=== PATIENT | male | born 1975 | race Two or more races ===

== ENCOUNTER → 2025-01-24 | Outpatient (CLI) | payer MEDICARE, MEDICAID, SELFPAY ==
[2025-01-24 13:08] LABS: Collection Type, Urine Clean Catch
[2025-01-24 13:41] LABS: Basophils # (Auto) 0.1 Thou/mm3 (0.0-0.2); Basophils % (Auto) 1 % (0-2.5); Eosinophils # (Auto) 0.2 Thou/mm3 (0.0-0.5); Eosinophils % (Auto) 1 % (0-10); Hematocrit 48.8 % (41.0-53.0); Immature Granulocytes % (Auto) 1 % (0-0); Immature Granulocytes Auto 0.06 Thou/mm3 (0.00-0.00); Lymphocytes # (Auto) 3.3 Thou/mm3 (1.0-4.8); Lymphocytes % (Auto) 26 % (10-50); Mean Corpuscular HGB Conc 32.8 g/dl (31.0-37.0); Mean Corpuscular Hemoglobin 29.4 pg (25.0-35.0); Mean Corpuscular Volume 90 fL (80-100); Monocytes # (Auto) 0.9 Thou/mm3 (0.0-0.8); Monocytes % (Auto) 7 % (0-12); Neutrophils # (Auto) 8.3 Thou/mm3 (1.8-7.7); Neutrophils % (Auto) 65 % (37-80); Nucleated Red Blood Cell % 0 /100 WBC (0); Platelet Count 227 Thou/mm3 (140-440); RDW Standard Deviation 43.5 fL (35.1-43.9); Red Blood Count 5.45 Miln/mm3 (4.50-5.90); White Blood Count 12.8 Thou/mm3 (3.8-10.6)
[2025-01-24 14:02] LABS: Bilirubin,Urine Negative (Negative); Blood,Urine Negative (Negative); Clarity,Urine Clear (Clear/Hazy); Color,Urine Yellow (Lt Yel-Yel); Glucose, Urine 4+ (Negative); Ketones,Urine Negative (Negative); Leukocyte Esterase,Urine Positive (Negative); Nitrite,Urine Negative (Negative); Protein,Urine 1+ (Neg - Trace); RBC,Urine 5 /hpf (0-3); Specific Gravity,Urine 1.031 (1.001-1.035); Squamous Epithelial Cell,Urine 2 /hpf (0-5); Urobilinogen,Urine Negative mg/dL (0.0-1.0); WBC,Urine 28 /hpf (0-5)
[2025-01-24 14:03] LABS: Glucose Estimated Average 272 mg/dL (80-131); Hemoglobin A1C 11.1 % Hgb (4.8-6.0)
[2025-01-24 14:05] LABS: Alanine Aminotransferase 31 U/L (10-49); Albumin, Serum 4.2 gm/dL (3.5-5.0); Albumin/Globulin Ratio 1.6 (1.2-2.2); Alkaline Phosphatase 104 U/L (46-116); Anion Gap 8 (7-16); Aspartate Amino Transferase 36 U/L (0-34); BUN/Creatinine Ratio 20 Ratio (12-20); Bilirubin,Total 0.5 mg/dL (0.3-1.2); Blood Urea Nitrogen 16 mg/dL (9-23); Calcium 9.6 mg/dL (8.3-10.6); Calcium (Corrected) 9.6 mg/dL (8.5-10.1); Carbon Dioxide 28.4 mMol/L (20.0-31.0); Cardiac Risk Estimate 2.9 RATIO (4.0-6.7); Chloride 101 mMol/L (98-107); Cholesterol 102 mg/dL (132-200); Creatinine (Component) 0.8 mg/dL (0.6-1.3); Globulin 2.7 gm/dL (2.3-3.5); Glucose 205 mg/dL (74-106); HDL Cholesterol 35 mg/dL (40-60); LDL Cholesterol,Calculated 25 mg/dL (0-130); Osmolality,Calculated 281 (275-295); Potassium 4.5 mMol/L (3.4-5.1); Sodium 137 mMol/L (136-145); Total Protein 6.9 gm/dL (5.7-8.2); Triglycerides 209 mg/dL (30-150); eGFR > 60 See Note
== END | disposition home or self-care (01) ==
PROVIDERS: PCP Family Medicine; Referring Provider Family Medicine; Visit Provider Family Medicine
DX: E11.40 Type 2 diabetes mellitus with diabetic neuropathy, unspecified (principal)
CPT/HCPCS: 36415; 80053; 80061; 81001; 83036; 85025

== ENCOUNTER → 2025-06-07 | Outpatient (CLI) | payer MEDICARE, MEDICAID, SELFPAY ==
[2025-06-07 13:19] LABS: Glucose Estimated Average 214 mg/dL (80-131); Hemoglobin A1C 9.1 % Hgb (4.8-6.0)
[2025-06-07 13:28] LABS: Creatinine MALB Rnd Ur 50 mg/dL (30-125); Microalbumin Creat Ratio 78 mg/gCrea (<30); Microalbumin, Random Urine 39 mg/L (0-300)
[2025-06-07 13:29] LABS: Alanine Aminotransferase 25 U/L (10-49); Albumin, Serum 4.4 gm/dL (3.5-5.0); Albumin/Globulin Ratio 1.4 (1.2-2.2); Alkaline Phosphatase 95 U/L (46-116); Anion Gap 13 (7-16); Aspartate Amino Transferase 28 U/L (0-34); BUN/Creatinine Ratio 13 Ratio (12-20); Bilirubin,Total 0.4 mg/dL (0.3-1.2); Blood Urea Nitrogen 12 mg/dL (9-23); Calcium 9.6 mg/dL (8.3-10.6); Calcium (Corrected) 9.6 mg/dL (8.5-10.1); Carbon Dioxide 22.3 mMol/L (20.0-31.0); Cardiac Risk Estimate 3.5 RATIO (4.0-6.7); Chloride 104 mMol/L (98-107); Cholesterol 122 mg/dL (132-200); Creatinine (Component) 0.9 mg/dL (0.6-1.3); Globulin 3.2 gm/dL (2.3-3.5); Glucose 172 mg/dL (74-106); HDL Cholesterol 35 mg/dL (40-60); LDL Cholesterol,Calculated 41 mg/dL (0-130); Osmolality,Calculated 281 (275-295); Potassium 4.3 mMol/L (3.4-5.1); Sodium 139 mMol/L (136-145); Total Protein 7.6 gm/dL (5.7-8.2); Triglycerides 232 mg/dL (30-150); eGFR > 60 See Note
== END | disposition home or self-care (01) ==
LOC: COPL 11:35
PROVIDERS: PCP Family Medicine; Referring Provider Family Medicine; Visit Provider Family Medicine
DX: E11.65 Type 2 diabetes mellitus with hyperglycemia (principal); E78.2 Mixed hyperlipidemia; I10 Essential (primary) hypertension
CPT/HCPCS: 36415; 80053; 80061; 82043; 82570; 83036

== ENCOUNTER 2025-09-30 12:16 | Emergency (ER) | payer MEDICARE, MEDICAID, SELFPAY ==
[2025-09-30] VITALS (8 sets, daily range): BP systolic 127–163; BP diastolic 74–97; PULSE 81–102; RESP 15–24; TEMP 36.7–36.9; O2SAT 91–98; BMI 51.7
--- NOTE | 2025-09-30 13:08 | XR_ITS ---
EXAMINATION: Testicular sonography complete TECHNIQUE: Grayscale sonographic images testes, assessment arterial inflow and venous outflow Doppler spectral analysis color flow analysis Date and time: September 30, 2025, 1432 hours INDICATIONS: Right testicular swelling beginning 2 days ago FINDINGS: Right testis 4.4 cm epididymis 1.4 cm Arterial flow logistical. No testicular mass Right scrotal mass with vascularity 4.0 x 3.4 x 3.9 cm Mild hydronephrosis Thickened scrotal wall Left testis 4.0 cm epididymis 13 mm Arterial flow testicle. No testicular mass Moderate varicocele Mild hydrocele IMPRESSION: No testicular torsion or testicular mass Vascular heterogeneous mass in the right scrotum 4.0 x 3.4 x 3.9 cm, consider abscess, recommend urology consultation
--- NOTE | 2025-09-30 13:09 | PD.EDRME ---
Rapid Medical Screening Exam E Arrival date/time: 09/30/25 12:16 This is a 50-year-old male that comes into the emergency room with a complaint of an abscess to the right testicle. Patient states has been there since Wednesday. Patient states that its gotten worse overnight. Patient reports history of diabetes and hyperlipidemia I have greeted and performed a focused initial assessment of this patient. Initial appropriate labs ordered at this time. A comprehensive ED assessment and evaluation of the patient and analysis of all test and completion of medical decision making process will be conducted by additional ED provider. Chief Complaint: Urogenital-Male Time Seen by Provider: 09/30/25 12:38 Vital signs: Vital Signs Temperature 98.5 F 09/30/25 12:51 Pulse Rate 92 09/30/25 12:51 Respiratory Rate 18 09/30/25 12:51 Blood Pressure 150/81 H 09/30/25 12:51 Pulse Oximetry (%) 95 09/30/25 12:51 Oxygen Delivery Method Room Air 09/30/25 12:51 Exam: Swelling and erythema to right testicle, alert and oriented breathing even unlabored, Clinical Impression: Abscess cellulitis testicle
[2025-09-30 13:36] LABS: Lactate (Lactic Acid) 2.3 mMol/L (0.4-2.0)
[2025-09-30 13:39] LABS: Basophils # (Auto) 0.1 Thou/mm3 (0.0-0.2); Basophils % (Auto) 1 % (0-2.5); Eosinophils # (Auto) 0.1 Thou/mm3 (0.0-0.5); Eosinophils % (Auto) 1 % (0-10); Hematocrit 50.1 % (41.0-53.0); Hemoglobin 16.2 g/dL (13.5-16.0); Immature Granulocytes Auto 0.06 Thou/mm3 (0.00-0.00); Lymphocytes # (Auto) 2.9 Thou/mm3 (1.0-4.8); Lymphocytes % (Auto) 17 % (10-50); Mean Corpuscular HGB Conc 32.3 g/dl (31.0-37.0); Mean Corpuscular Hemoglobin 29.2 pg (25.0-35.0); Mean Corpuscular Volume 90 fL (80-100); Monocytes # (Auto) 1.4 Thou/mm3 (0.0-0.8); Monocytes % (Auto) 8 % (0-12); Neutrophils # (Auto) 12.1 Thou/mm3 (1.8-7.7); Neutrophils % (Auto) 73 % (37-80); Nucleated Red Blood Cell # 0.00 Thou/mm3 (0.00-0.00); Nucleated Red Blood Cell % 0 /100 WBC (0); Platelet Count 266 Thou/mm3 (140-440); RDW Standard Deviation 46.1 fL (35.1-43.9); Red Blood Count 5.54 Miln/mm3 (4.50-5.90); White Blood Count 16.6 Thou/mm3 (3.8-10.6)
[2025-09-30 14:02] LABS: Alanine Aminotransferase 15 U/L (10-49); Albumin, Serum 4.9 gm/dL (3.5-5.0); Albumin/Globulin Ratio 1.8 (1.2-2.2); Alkaline Phosphatase 97 U/L (46-116); Anion Gap 9 (7-16); Aspartate Amino Transferase 18 U/L (0-34); BUN/Creatinine Ratio 17 Ratio (12-20); Bilirubin,Total 0.4 mg/dL (0.3-1.2); Blood Urea Nitrogen 15 mg/dL (9-23); Calcium 9.9 mg/dL (8.3-10.6); Calcium (Corrected) 9.9 mg/dL (8.5-10.1); Carbon Dioxide 27.4 mMol/L (20.0-31.0); Chloride 102 mMol/L (98-107); Creatinine (Component) 0.9 mg/dL (0.6-1.3); Estimated Creatinine Clearance 136.7 mL/min (>60); Globulin 2.7 gm/dL (2.3-3.5); Glucose 169 mg/dL (74-106); Osmolality,Calculated 280 (275-295); Potassium 4.2 mMol/L (3.4-5.1); Procalcitonin 0.12 ng/ml (0.0-0.49); Sodium 138 mMol/L (136-145); Total Protein 7.6 gm/dL (5.7-8.2); eGFR > 60 See Note
--- NOTE | 2025-09-30 15:50 | PD.EDMALE ---
ED Male Genitalurinary RME/HPI General Chief complaint: Urogenital-Male Stated complaint: TESTICULAR SWELLING, BOIL TO GROIN AREA Time Seen by Provider: 09/30/25 12:38 Arrival date/time: 09/30/25 12:16 RME / HPI RME / HPI Narrative: 09/30/25 12:16 This is a 50-year-old male that comes into the emergency room with a complaint of an abscess to the right testicle. Patient states has been there since Wednesday. Patient states that its gotten worse overnight. Patient reports history of diabetes and hyperlipidemia I have greeted and performed a focused initial assessment of this patient. Initial appropriate labs ordered at this time. A comprehensive ED assessment and evaluation of the patient and analysis of all test and completion of medical decision making process will be conducted by additional ED provider. DR. AUGUSTINE MAIN ED EVALUATION: 50-year-old male presents to the Emergency Department for right testicular swelling and pain that began yesterday around 3 AM. The patient reports that the pain and swelling have worsened today since onset. He initially drove to a hospital in [place], but they did not accept his insurance, so he traveled here for evaluation. He denies fever but reports mild sweating. No trauma, dysuria, or urethral discharge reported. No prior episodes of similar pain. He also mentions that he has a history of diabetes and chronic right knee pain on [place]; for which he cannot undergo knee replacement surgery due to obesity. Related Data Home Medications ?Medication ?Instructions ?Recorded ?Confirmed dulaglutide 0.75 mg/0.5 mL 0.75 mg subcut QWEEK 03/22/23 03/22/23 subcutaneous pen injector (Trulicity) empagliflozin 25 mg tablet 25 mg PO QDAY 03/22/23 03/22/23 (Jardiance) fenofibrate 160 mg tablet 160 mg PO QDAY 03/22/23 03/22/23 hydrocodone 10 mg-acetaminophen 1 tab PO Q6H PRN Pain 03/22/23 03/22/23 325 mg tablet lisinopril 20 1 tab PO QDAY 03/22/23 03/22/23 mg-hydrochlorothiazide 25 mg tablet metformin 1,000 mg tablet 1,000 mg PO BID 03/22/23 03/22/23 pregabalin 25 mg capsule 25 mg PO Q8H 03/22/23 03/22/23 simvastatin 20 mg tablet 20 mg PO QPM 03/22/23 03/22/23 sitagliptin phosphate 100 mg 100 mg PO QDAY 03/22/23 03/22/23 tablet (Januvia) Allergies Allergy/AdvReac Type Severity Reaction Status Date / Time METALS Allergy Intermediate Rash Uncoded 03/20/23 21:20 Review of Systems Review of Systems Systems Reviewed: All systems reviewed, normal except as documented Past Medical History Past Medical History RESPIRATORY: Positive Asthma ENDOCRINE: Positive Diabetes Mellitus Type 2 Social History SMOKING STATUS: Current every day smoker SUBSTANCE USE: marijuana ED Exam Narrative Physical exam: GENERAL APPEARANCE: alert and oriented x 4, well-developed, well-nourished, no acute distress VITALS: All vitals were reviewed and the pulse ox is 91% on room air, which is hypoxic according to my interpretation. HEENT: Normocephalic, atraumatic; pupils equal, round, reactive to light; EOMI; mucous membranes pink, moist; oropharynx clear NECK: Supple LUNGS: CTABL; no wheezes, no rales, no rhonchi HEART: Regular rate, regular rhythm; normal S1, S2; no murmurs ABDOMEN: non distended; normal BS; soft, no tenderness, no guarding, no rebound; no masses, no organomegaly, no hernia BACK: no CVA tenderness EXAM: Right groin with induration and erythema extending into the right scrotum; scrotal swelling and tenderness present EXTREMITIES: Atraumatic; no edema NEUROLOGIC: awake; alert and oriented x4; cranial nerves II-XII grossly intact; no focal sensory or motor deficits PSYCHIATRIC: appropriate mood and affect SKIN: Warm; erythema localized to right groin/scrotum; no rash or ulceration elsewhere Course Quality Measures none Orders Category Date Time Status CT Screening NOW Care 09/30/25 15:51 Completed Referral - Egg Processor Stat Cons 09/30/25 17:[address] pelvis w con Stat Exams 09/30/25 15:51 Completed US testicular Stat Exams 09/30/25 13:08 Completed Blood Culture (Lab) Stat Lab 09/30/25 13:29 Results CBC Stat Lab 09/30/25 13:29 Completed Comprehensive Metabolic Panel Stat Lab 09/30/25 13:29 Completed Lactate (Lactic Acid) Stat Lab 09/30/25 13:29 Completed Lactic Acid, 3 HR Stat Lab 09/30/25 17:15 Completed Procalcitonin Stat Lab 09/30/25 13:29 Completed Urinalysis, C/S if Indicated Stat Lab 09/30/25 15:40 Completed HYDROcodone*/APAP 5/325 [[place] 5/325] Med 09/30/25 18:04 Discontinued 1 tab PO X1 ONE Piper/Tazo 3.375 gm Premix [Zosyn] Med 09/30/25 16:07 Discontinued 3.375 gm in 50 ml IV X1 Vancomycin/Ns 1 gm Ivpb 200 ml Med 09/30/25 16:07 Discontinued IV X1 Vital Signs Vital signs: Vital Signs Temperature 98.5 F 09/30/25 12:51 Pulse Rate 92 09/30/25 12:51 Respiratory Rate 18 09/30/25 12:51 Blood Pressure 150/81 H 09/30/25 12:51 Pulse Oximetry (%) 95 09/30/25 12:51 Oxygen Delivery Method Room Air 09/30/25 12:51 Urogenital - Male MDM Narrative MDM Narrative:: IYahaira am scribing for and in the presence of Dr. Augustine. Patient data External records reviewed:: [facility] previous records Clinical information provided by:: patient Social determinants that could affect healthcare access:: substance use (marijuana) Patient has the following chronic illnesses:: History of diabetes and chronic right knee pain on [place]; for which he cannot undergo knee replacement surgery due to obesity. How is presenting disease/condition affected by chronic disease/condition?: uneffected by Evaluation data The following diagnostics were reviewed and interpreted by me:: lab results and radiology exam(s) Lab and/or radiology exams considered but not ordered:: none Interpretation Summary: Procedure(s): US testicular Accession Number(s): [id number] cc: Jasper Boyer MD; Abel Escalona MD; Glory Bowser NP~ EXAMINATION: Testicular sonography complete TECHNIQUE: Grayscale sonographic images testes, assessment arterial inflow and venous outflow Doppler spectral analysis color flow analysis Date and time: September 30, 2025, 1432 hours INDICATIONS: Right testicular swelling beginning 2 days ago FINDINGS: Right testis 4.4 cm epididymis 1.4 cm Arterial flow logistical. No testicular mass Right scrotal mass with vascularity 4.0 x 3.4 x 3.9 cm Mild hydronephrosis Thickened scrotal wall Left testis 4.0 cm epididymis 13 mm Arterial flow testicle. No testicular mass Moderate varicocele Mild hydrocele IMPRESSION: No testicular torsion or testicular mass Vascular heterogeneous mass in the right scrotum 4.0 x 3.4 x 3.9 cm, consider abscess, recommend urology consultation Dictated By: Abel Escalona MD Procedure(s): CT pelvis w jie Accession Number(s): [id number] cc: Jasper Boyer MD; Abel Escalona MD; Mary Augustine MD~ Examination: CT pelvis with intravenous contrast, 2-D sagittal reconstructions. 2-D coronal reconstructions. 3-D reconstructions. Date and time of exam: September 30, 2025, 1642 hours INDICATIONS: Right testicular swelling and pain today CTDI: vol (mGy): 22.3 DLP: (mGycm): 601 Technique: Multiple 1.25 mm axial sections of the pelvis post intravenous administration 60 cc Isovue 370 have been obtained. 2-D sagittal and coronal reconstructions have been obtained. 3-D reconstructions have been obtained. Low dose protocols were performed. One or more of the following dose reduction techniques were used; automated exposure control, adjustment of the mA and/or KV according to patient size, use of iterative reconstruction technique. Findings: Normal appendix Normal seminal vesicles No prostatomegaly Urinary bladder intact No inguinal hernia Abscess in the right scrotal sac extending to the right perineum, axial image 169, coronal image 82, measuring 4 x 4 cm with thick wall Cellulitis in the perineum extending into the scrotal sac IMPRESSION: Abscess in the right scrotal sac extending into the right perineum, the abscess measuring 4 x 4 CM, recommend urology consultation Dictated By: Abel Escalona MD Medications / Prescriptions Medications or Prescriptions considered but not ordered:: nonw Medication administrations:: Medication Administration History Discontinued Medications Hydrocodone Bitart/Acetaminophen (Hydrocodone/Apap 5/325 Tablet) 1 tab PO X1 ONE Stop: 09/30/25 18:05 Last Admin: 09/30/25 18:27 Dose: 1 tab Documented By: EF Vancomycin/Sodium Chloride (Vancomycin/Ns 1 Gm Ivpb) 200 mls @ 120 mls/hr IV X1 ONE Stop: 09/30/25 17:46 Last Infusion: 09/30/25 18:29 Dose: Infused Documented By: Admin: 09/30/25 16:21 Dose: 120 mls/hr Documented By: EF Piperacillin/Tazobactam/Dextrose (Zosyn) 3.375 gm in 50 mls @ 100 mls/hr IV X1 ONE; Protocol Stop: 09/30/25 16:36 Last Infusion: 09/30/25 16:52 Dose: Infused Documented By: Admin: 09/30/25 16:20 Dose: 100 mls/hr Documented By: EF see above if any Consultations Consultation(s) initiated? (list below): No Diagnosis Urogenital Male Differential Diagnosis: other (Steven's gangrene, epididymo-orchitis, and cellulitis of the groin/scrotum.) Most likely diagnosis given after review of the tests above:: See below under clinical impression Admission Indicated Admission indicated?: not indicated Admission Request Was there a request for admission?: No Disposition Plan Disposition Plan: Transfer (Patient signed out to Dr. Ventura pending transfer for urology.) Discharge Plan Plan Patient Disposition: [facility] Pt Being Transferred to: [facility] Service Needed for Transfer: Urology Prescriptions/Referrals Prescriptions/Med Rec: No Action hydrocodone-acetaminophen 10-325 mg Tablet 1 tab PO Q6H PRN (Reason: Pain) simvastatin 20 mg Tablet 20 mg PO QPM metformin 1,000 mg Tablet 1,000 mg PO BID lisinopril-hydrochlorothiazide 20-25 mg Tablet 1 tab PO QDAY fenofibrate 160 mg Tablet 160 mg PO QDAY pregabalin 25 mg Capsule 25 mg PO Q8H Januvia 100 mg Tablet 100 mg PO QDAY Jardiance 25 mg Tablet 25 mg PO QDAY Trulicity 0.75 mg/0.5 mL Pen Injector 0.75 mg SUBCUT QWEEK Referrals: Jasper Boyer MD [Primary Care Provider, Family Practice] - In 1 week Problem List Clinical Impression: Scrotal abscess, Cellulitis, Hyperglycemia without ketosis Patient/Caregiver Discharge Instructions Print Language: Thai Stand Alone Forms: Genny Award Info., Patient Portal Info Letter
[2025-09-30 15:55] LABS: Collection Type, Urine Voided
[2025-09-30] MEDS: PIPER/TAZO 3.375 GM PREMIX 3.375 GM/50 ML BAG IV (16:20)
[2025-09-30] MEDS: VANCOMYCIN/NS 1 GM IVPB 200 ML IV (16:21)
[2025-09-30 16:34] LABS: Reflex Lactate? Y
[2025-09-30 17:01] LABS: Bilirubin,Urine Negative (Negative); Blood,Urine Negative (Negative); Budding Yeast,Urine Present; Clarity,Urine Clear (Clear/Hazy); Color,Urine Lt-Yellow (Lt Yel-Yel); Culture Indicated,Urine Not Indicated; Glucose, Urine 4+ (Negative); Ketones,Urine Negative (Negative); Leukocyte Esterase,Urine Positive (Negative); Nitrite,Urine Negative (Negative); PH,Urine 6.0 (5.0-7.0); Protein,Urine Negative (Neg - Trace); RBC,Urine 5 /hpf (0-3); Specific Gravity,Urine 1.032 (1.001-1.035); Squamous Epithelial Cell,Urine 9 /hpf (0-5); Urobilinogen,Urine Negative mg/dL (0.0-1.0); WBC,Urine 4 /hpf (0-5)
[2025-09-30 17:33] LABS: Lactic Acid, 3 HR 2.0 mMol/L (0.4-2.0)
--- NOTE | 2025-09-30 18:01 | PC.CM ---
Addendum entered by Ophelia Puckett RN 09/30/25 18:50: 1845 0 I spoke to Albert with [facility] and I connected her MD to MD. I started the packet and made a CD. I took paperwork and 1 CD to ED. 1814 I initiated transfer with [facility] and I faxed over information. Original Note: 1754 I received a referral to transfer patient for urology services for an abscess that extends into the perineum.
--- NOTE | 2025-09-30 18:10 | EDNOTE_ITS ---
Emergency Room Addendum Addendum Narrative: 1800: Care assumed from Dr. Augustine, the previous shift emergency physician. Past medical, surgical, social and family history reviewed. Vitals and home medications reviewed. Results and treatment plan discussed. I will assume the care of the patient at this time and will follow the patient, pending urology transfer. Please refer to the emergency department record for history and examination from initial visit. Pleasant, morbidly obese 50yo male presenting with progressively worsening painful swelling to the right scrotal region and was found to have evidence of scrotal abscess extending from the external sac to to right perineal region. Patient appears slightly flushed, but is nontoxic. Labs demonstrated elevated WBC 16.6, mildly elevated glucose of 169, no evidence of DKA. UA without signs of infection. Patient received IV fluids, dual antibiotics, and will require urological consultation. 1841: Discussed case with [facility]'s transfer center. Discussed patients ED course, exam findings, labs, and radiology results. Awaiting callback. 2006: Discussed case with Dr. Yin from urology at [facility] regarding possible transfer. Discussed patients ED course, exam findings, labs, and radiology results. Accepts the patient for transfer. Dx: scrotal abscess, cellulitis, hyperglycemia without ketosis
[2025-09-30] MEDS: HYDROcodone/APAP 5/325 TABLET 1 TAB PO (18:27)
--- NOTE | 2025-09-30 21:04 | PC.NURSE ---
lassessment of scrotum shows swollen scrotum, painful lump to R SIDE.PT RESTING QUIETLY. IV TO L HAND CAUSING PAIN. TAPE REMOVED AND IV REAJUSTED AND SECURED. NO PAIN NOW.
--- NOTE | 2025-09-30 21:28 | PC.NURSE ---
THIS PT IS ACCEPTED TO [facility] BY DR. MORRISSEY. THIS PT IS GOING TO RM 259 AND NUMBER FOR REPORT IS [phone]. HOANG WAS THE FACILITY REP I SPOKE WITH FOR ACCEPTING INFORMATION.
--- NOTE | 2025-09-30 22:22 | PC.NURSE ---
EMS HERE NOW. REPORT GIVEN TO BEE[facility] CATTLE SPECIALIST. PT A & o X 4. vs ARE STABLE. REPORT CALLED TO [facility]ORMONISM Yahir Garza. PT LEAVING HERE NOW.
== END 2025-09-30 22:28 | disposition short-term general hospital (02) ==
PROVIDERS: Nurse Practitioner Family; Emergency Provider Emergency Medicine; PCP Family Medicine
DX: L02.215 Cutaneous abscess of perineum (principal); E11.65 Type 2 diabetes mellitus with hyperglycemia; E66.9 Obesity, unspecified; E78.5 Hyperlipidemia, unspecified; G89.29 Other chronic pain; Z79.84 Long term (current) use of oral hypoglycemic drugs
CPT/HCPCS: 36415; 72193; 76870; 80053; 81001; 83605; 84145; 85025; 87040; 96365; 96366; 99282; A4649; J2543; J3373; Q9967; A9270

== ENCOUNTER → 2025-10-25 | Outpatient (CLI) | payer MEDICARE, MEDICAID, SELFPAY ==
[2025-10-25 13:57] LABS: Basophils # (Auto) 0.1 Thou/mm3 (0.0-0.2); Basophils % (Auto) 1 % (0-2.5); Eosinophils # (Auto) 0.2 Thou/mm3 (0.0-0.5); Eosinophils % (Auto) 1 % (0-10); Hematocrit 52.8 % (41.0-53.0); Hemoglobin 16.6 g/dL (13.5-16.0); Immature Granulocytes Auto 0.04 Thou/mm3 (0.00-0.00); Lymphocytes # (Auto) 3.2 Thou/mm3 (1.0-4.8); Lymphocytes % (Auto) 26 % (10-50); Mean Corpuscular HGB Conc 31.4 g/dl (31.0-37.0); Mean Corpuscular Hemoglobin 29.1 pg (25.0-35.0); Mean Corpuscular Volume 93 fL (80-100); Monocytes # (Auto) 0.9 Thou/mm3 (0.0-0.8); Monocytes % (Auto) 8 % (0-12); Neutrophils # (Auto) 7.7 Thou/mm3 (1.8-7.7); Neutrophils % (Auto) 64 % (37-80); Nucleated Red Blood Cell # 0.00 Thou/mm3 (0.00-0.00); Nucleated Red Blood Cell % 0 /100 WBC (0); Platelet Count 239 Thou/mm3 (140-440); RDW Standard Deviation 47.8 fL (35.1-43.9); Red Blood Count 5.71 Miln/mm3 (4.50-5.90); White Blood Count 12.1 Thou/mm3 (3.8-10.6)
[2025-10-25 14:21] LABS: Alanine Aminotransferase 24 U/L (10-49); Albumin, Serum 4.7 gm/dL (3.5-5.0); Albumin/Globulin Ratio 1.7 (1.2-2.2); Alkaline Phosphatase 104 U/L (46-116); Anion Gap 10 (7-16); Aspartate Amino Transferase 22 U/L (0-34); BUN/Creatinine Ratio 23 Ratio (12-20); Bilirubin,Total 0.4 mg/dL (0.3-1.2); Blood Urea Nitrogen 14 mg/dL (9-23); Calcium 9.3 mg/dL (8.3-10.6); Calcium (Corrected) 9.3 mg/dL (8.5-10.1); Carbon Dioxide 26.0 mMol/L (20.0-31.0); Cardiac Risk Estimate 3.1 RATIO (4.0-6.7); Chloride 104 mMol/L (98-107); Cholesterol 106 mg/dL (132-200); Creatinine (Component) 0.6 mg/dL (0.6-1.3); Globulin 2.8 gm/dL (2.3-3.5); Glucose 95 mg/dL (74-106); HDL Cholesterol 34 mg/dL (40-60); LDL Cholesterol,Calculated 20 mg/dL (0-130); Osmolality,Calculated 279 (275-295); Potassium 4.5 mMol/L (3.4-5.1); Sed Rate (ESR) 23 mm/hr (0-20); Sodium 140 mMol/L (136-145); Total Protein 7.5 gm/dL (5.7-8.2); Triglycerides 262 mg/dL (30-150); Uric Acid 5.2 mg/dL (3.7-9.2); eGFR > 60 See Note
[2025-10-25 14:34] LABS: Glucose Estimated Average 163 mg/dL (80-131); Hemoglobin A1C 7.3 % Hgb (4.8-6.0)
== END | disposition home or self-care (01) ==
PROVIDERS: PCP Family Medicine; Referring Provider Family Medicine; Visit Provider Family Medicine
DX: N49.2 Inflammatory disorders of scrotum (principal); E11.65 Type 2 diabetes mellitus with hyperglycemia; E11.69 Type 2 diabetes mellitus with other specified complication
CPT/HCPCS: 36415; 80053; 80061; 83036; 84550; 85025; 85652